=== PATIENT | male | born 1980 | race Caucasian/White ===

== ENCOUNTER 2021-05-21 20:17 | Emergency (ER) | payer MEDICAID, SELFPAY ==
[2021-05-21 20:18] VITALS: BP 158/101; PULSE 73; RESP 15; TEMP 36.4; O2SAT 98; BMI 25.8
--- NOTE | 2021-05-21 20:40 | EX.ED.DYSGE1 ---
HPI History of Present Illness Chief Complaint: Lower Extremity Injury Informant: patient Narrative Narrative: 40-year-old male presents to emergency department with right leg pain. Patient states that yesterday he was doing some limb work with family. He states that he noticed some discomfort near his ankle thought maybe had rolled his ankle at 1 point but does not recall any specific injury. He states today he noted some swelling over the anterior aspect of his leg some redness and tenderness. He talked it over with a friend who had a prior DVT and that concerned him so he came to emergency. He denies any known DVT or PE risk factors. He denies any breaks in the skin that would have seated an infection. PFSH PFSH no medical history Home Medications cephalexin 500 mg PO Q6 #40 capsule 05/21/21 [Rx Last Taken Unknown] Allergy/AdvReac Type Severity Reaction Status Date / Time No Known Allergies Allergy Verified 05/21/21 20:21 Social History (Updated 05/21/21 @ 20:[address] Chato Love, DO) Smoking Status: Never smoker substance use type: does not use ROS ROS ED Constitutional Constitutional ED: Denies chills or weight loss Eyes Eyes: Denies change in vision or diplopia ENT ENT ED: Denies ear pain, rhinorrhea or sore throat Cardiovascular Cardiovascular: Denies chest pain, orthopnea, palpitations or racing heartbeat Respiratory/Chest Respiratory/Chest: Denies cough, dyspnea or orthopnea Gastrointestinal Gastrointestinal: Denies abdominal pain, diarrhea, nausea or vomiting Genitourinary Genitourinary ED: Denies dysuria, hematuria or urinary frequency Musculoskeletal Musculoskeletal: Reports other Details: See history of present illness ; Denies arthralgias or myalgias Integumentary Reports rash; Denies abscess Neurologic Neurologic: Denies headache(s) or weakness Psychiatric Psychiatric: Denies anxiety, depression, suicidal ideation or suicidal thoughts Endocrine Endocrinology: Denies polydipsia, polyphagia or polyuria Allergic/Immunologic Allergic/Immunologic ED: Denies mouth swelling, tongue swelling or urticaria EXAM Physical Exam Const Vital Signs: 05/21/21 20:18 Temperature 97.6 F L Temperature Source Temporal Pulse Rate 73 Respiratory Rate 15 Blood Pressure 158/101 H Blood Pressure Mean 120 Pulse Ox 98 Oxygen Delivery Method Room Air Positive well nourished and well developed General Appearance ED: well developed HEENT Reports normocephalic, head/scalp atraumatic and moist mucous membranes Eyes PERRL and EOMs intact bilaterally Neck no lymphadenopathy, supple and no JVD Resp normal respiratory effort and clear to auscultation bilaterally Cardio regular rate, regular rhythm and no murmurs GI normal to inspection, nondistended, normoactive bowel sounds and non-tender Palpation: soft Back/Spine no CVA tenderness and normal ROM Extremity Extremity Narrative: Over the anterior distal third of the right leg is an area of increased warmth, erythema and tenderness. The calf itself does not feel swollen or tender. There is no palpable cords. There is 1 very small break in the skin that is cephalad to the area of erythema. General Extremety ED: Yes edema and tenderness General Extremity: edema Neuro oriented x3 and CN's II-XII intact bilaterally Sensorium / Orientation: alert Motor Exam: strength 5/5 throughout Psych mental status grossly normal Mood & Affect: Negative for depressed or tearful Skin no rashes or lesions noted and no wounds MDM MDM MDM Narrative Medical decision making narrative: Duplex ultrasound is negative for DVT. Given the erythema and increased warmth and some mild swelling will place him on Keflex. Would recommend follow-up return if worsening Discharge Plan Triage Chief Complaint: Lower Extremity Injury ED Provider: Chato Love Dx/Rx/DC Orders Clinical Impression: Cellulitis of leg, right Instructions: ED Cellulitis Prescriptions: New cephalexin [cephalexin] 500 MG capsule 500 mg PO Q6 Qty: 40 RF: 0 Primary Care Provider: Care Physician,No Primary Referrals: Jarad Gutierrez MD [STAFF PHYSICIAN] - 3-5 Days if not improving Care Physician,No Primary [Primary Care Provider] - Disposition Disposition: Home, Self Care
--- NOTE | 2021-05-21 21:11 | US_ITS ---
STUDY: VENOUS DOPPLER ULTRASOUND - RIGHT LOWER EXTREMITY REASON FOR EXAM: Male, 40 years old. RT LOWER ANKLE/CALF PAIN AND SOME REDNESS TECHNIQUE: Ultrasound evaluation of the deep vein system to include alvarado-scale imaging and compression was performed. Alvarado-scale imaging and Doppler sonographic evaluation, including duplex spectral analysis and qualitative color flow sonography, was performed. COMPARISON: None. FINDINGS: Common Femoral Vein: Normal compression, spontaneity and augmentation. Normal color Doppler. Common Femoral Vein/Greater Saphenous Junction: Normal compression. Femoral Proximal: Normal compression. Femoral Middle: Normal compression, spontaneity and augmentation. Normal color Doppler. Femoral Distal: Normal compression. Popliteal Vein: Normal compression, spontaneity and augmentation. Normal color Doppler. Posterior Tibial Vein: Normal compression. Peroneal Vein: Normal compression. US/Venous Duplex Imag/Limited/Uni IMPRESSION: Normal venous Doppler ultrasound of the lower extremity. Electronically Signed: Mitchell Forbes DO at 22:16 EDT Tel [phone], Service support ,
[2021-05-21] MEDS: Cephalexin 250 MG Capsule 500 MG PO (21:58)
== END 2021-05-21 21:59 | disposition home or self-care (01) ==
PROVIDERS: Emergency Provider Emergency Medicine
DX: L03.115 Cellulitis of right lower limb (principal)
CPT/HCPCS: 93971; 99283